=== PATIENT | female | born 1995 | race Caucasian/White ===

== ENCOUNTER 2018-03-10 16:16 | Emergency (ER) | payer SELFPAY ==
--- NOTE | 2018-03-10 16:23 | PDOC ---
Rapid Medical Evaluation Chief Complaint: Sore Throat Time Seen by Provider: 03/10/18 16:20 Medical Evaluation: I have performed a brief in-person evaluation of this patient. The patient presents with a chief complaint of: productive cough x 2 days. subjective fever at home yesterday. None today. afebrile today. also with sore throat Pertinent physical exam findings: normal vital signs. no cough in ER. No tonsilar erythema or exudate. I have ordered the following: hcg The patient will proceed to the ED for further evaluation. Discharge Disposition - Diagnosis Cough - Referrals - Patient Instructions - Post Discharge Activity
--- NOTE | 2018-03-10 16:31 | PDOC ---
History of Present Illness - General Chief Complaint: Sore Throat Stated Complaint: THROAT PAIN Time Seen by Provider: 03/10/18 16:20 - History of Present Illness Initial Comments: 22-year-old female presents for 2 days worth of cough and subjective fever at home. She denies chills and night sweats. She has a past medical history significant for asthma. She has mild raspy voice for the last 2 days. 03/10/18 16:28 Past History - Past Medical History Home Medications: Ambulatory Orders Cetirizine HCl/Pseudoephedrine [Zyrtec-D Tablet] 1 each PO DAILY #30 tab.[id number] 03/10/18 Asthma: Yes CVA: No COPD: No DVT: No Dementia: No - Suicide/Smoking/Psychosocial Hx Smoking History: Never smoked Information on smoking cessation initiated: No Hx Alcohol Use: No Drug/Substance Use Hx: No Substance Use Type: None Review of Systems - Review of Systems Constitutional: Yes: Fever Respiratory: Yes: Cough All Other Systems: Reviewed and Negative *Physical Exam - Vital Signs Last Vital Signs Temp Pulse Resp BP Pulse Ox 97.9 F 102 H 18 133/82 99 03/10/18 16:20 03/10/18 16:20 03/10/18 16:20 03/10/18 16:20 03/10/18 16:20 - Physical Exam Comments: GENERAL: The patient is awake, alert, and fully oriented, in no acute distress. HEAD: Normal with no signs of trauma. EYES: Pupils equal, round and reactive to light, extraocular movements intact, sclera anicteric, conjunctiva clear. ENT: Ears normal, nares patent, oropharynx clear without exudates. Moist mucous membranes. NECK: Normal range of motion, supple without lymphadenopathy, JVD, or masses. LUNGS: Breath sounds equal, clear to auscultation bilaterally. No wheezes, and no crackles. HEART: Regular rate and rhythm, normal S1 and S2 without murmur, rub or gallop. ABDOMEN: Soft, nontender, normoactive bowel sounds. No guarding, no rebound. No masses. EXTREMITIES: Normal range of motion, no edema. No clubbing or cyanosis. No cords, erythema, or tenderness. NEUROLOGICAL: Cranial nerves II through XII grossly intact. Normal speech, normal gait. PSYCH: Normal mood, normal affect. SKIN: Warm, Dry, normal turgor, no rashes or lesions noted. 03/10/18 16:28 Medical Decision Making - Medical Decision Making This is a 22-year-old female with a benign exam. She has full equal breath sounds no pharyngeal erythema I believe this may be seasonal ALLERGIES I'll give her a decongestant with an antihistamine and have her follow-up with internal medicine 03/10/18 16:29 *DC/Admit/Observation/Transfer Diagnosis at time of Disposition: Cough, Seasonal allergies - Discharge Dispostion Disposition: HOME Condition at time of disposition: Stable Decision to Admit order: No - Referrals Referrals: Warren Sood [Non Staff, Medical] - - Patient Instructions Printed Discharge Instructions: Allergic Rhinitis Additional Instructions: Return to the emergency room should symptoms worsen or go unresolved. In the meantime follow-up with internal medicine for further evaluation and treatment options. - Post Discharge Activity
[2018-03-10 16:39] VITALS: BP 133/82; PULSE 102; TEMP 97.9; BMI 34.0
== END 2018-03-10 16:44 | disposition home or self-care (01) ==
LOC: JER 16:16
DX: J30.2 Other seasonal allergic rhinitis (principal); R05 Cough
CPT/HCPCS: 99281-25